=== PATIENT | female | born 1955 | race Caucasian/White ===

== ENCOUNTER 2017-03-31 11:32 | Emergency (ER) | payer MEDICAID ==
[2017-03-31 11:43] VITALS: RESP 18; O2SAT 100
[2017-03-31] MEDS ORDERED: Sodium Chloride 0.9% 1,000 ML IV ONE (11:59)
--- NOTE | 2017-03-31 13:34 | C.PDOC ---
History Of Present Illness 61-year-old female, presents to the emergency department with complaints of lower abdominal pain that is associated with urinary frequency and dysuria. Pain radiates to lower back. Last normal bowel movement was yesterday, Patient denies nausea/vomiting, fevers, chills, hematuria, shortness of breath or chest pain. 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 Limitations: no limitations, language barrier Past Medical History Reviewed: Historical Data, Nursing Documentation, Vital Signs Vital Signs: Last Vital Signs Temp 97.9 F 03/31/17 14:36 Pulse 80 03/31/17 14:36 Resp 18 03/31/17 14:36 BP 112/77 03/31/17 14:36 Pulse Ox 100 03/31/17 14:36 - Medical History PMH: Arthritis, HTN Family History: States: No Known Family Hx - Social History Hx Tobacco Use: No Hx Alcohol Use: No Hx Substance Use: No - Immunization History Hx Tetanus Toxoid Vaccination: No Hx Influenza Vaccination: No Hx Pneumococcal Vaccination: No Review Of Systems Except As Marked, All Systems Reviewed And Found Negative. Constitutional: Negative for: Fever, Chills Cardiovascular: Negative for: Chest Pain, Palpitations Respiratory: Negative for: Shortness of Breath Gastrointestinal: Positive for: Abdominal Pain. Negative for: Nausea, Vomiting , Diarrhea Genitourinary: Positive for: Dysuria, Frequency. Negative for: Hematuria Musculoskeletal: Positive for: Back Pain Physical Exam - Physical Exam Appears: Non-toxic, No Acute Distress Skin: Warm, Dry, No Rash Head: Atraumatic, Normacephalic Eye(s): bilateral: Normal Inspection, EOMI Nose: Normal Oral Mucosa: Moist Lips: Normal Appearing Neck: Normal ROM Cardiovascular: Rhythm Regular, No Murmur Respiratory: Normal Breath Sounds, No Accessory Muscle Use Gastrointestinal/Abdominal: Soft, Tenderness (lower), No Guarding, No Rebound Extremity: Normal ROM Neurological/Psych: Oriented x3, Normal Speech ED Course And Treatment - Laboratory Results Result Diagrams: 03/31/17 13:30 03/31/17 13:30 O2 Sat by Pulse Oximetry: 100 (on RA) Pulse Ox Interpretation: Normal Progress Note: Blood work ordered and reviewed. Patient treated with IVFs and Toradol. UA ordered. On re-evaluation, pt notes pain improved. No abdominal tenderness. toelrating PO. no fever. Discussed signs of concern and instructed to return to ER if symtpoms persist or worsen. Metalworking Specialist used to ensure understanding. Disposition - Disposition Disposition: HOME/ ROUTINE Disposition Time: 14:08 Condition: STABLE Additional Instructions: Vaya a parikh mdico o la clnica en 2-5 waters sin falta, para mas evaluacin. Volver a la [place] de emergencia en cualquier momento si los sntomas persisten o empeoran. Prescriptions: Nitrofurantoin Macrocrystals [Macrobid] 1 cap PO BID #14 cap Instructions: Urinary Tract Infection in Women (ED) Print Language: CYMRAES - Clinical Impression Clinical Impression: UTI (urinary tract infection) - PA / PROJECT MGR / Resident Statement MD/DO has reviewed & agrees with the documentation as recorded. - Scribe Statement The provider has reviewed the documentation as recorded by the Scribe (Ruslan Trejo) All medical record entries made by the Scribe were at my direction and personally dictated by me. I have reviewed the chart and agree that the record accurately reflects my personal performance of the history, physical exam, medical decision making, and the department course for this patient. I have also personally directed, reviewed, and agree with the discharge instructions and disposition.
[2017-03-31 13:45] LABS: BASO % 0.7 % (0.0-2.0); EOS # 0.3 K/uL (0.0-0.7); EOS % 4.8 % (0.0-4.0); HEMOGLOBIN 13.3 g/dL (11.0-16.0); MEAN CELL VOLUME 85.7 fL (81.0-99.0); MEAN CORPUSCULAR HEMOGLOBIN 28.4 pg (27.0-31.0); MEAN CORPUSCULAR HGB CONC 33.1 g/dL (33.0-37.0); MEAN PLATELET VOLUME 7.8 fL (7.2-11.7); MONO # 0.7 K/uL (0.0-0.8); MONO % 9.7 % (0.0-10.0); NEUT # 2.9 K/uL (1.8-7.0); NEUT % 41.8 % (50.0-75.0); RBC 4.68 Mil/uL (3.80-5.20); RED CELL DISTRIBUTION WIDTH 13.1 % (11.5-14.5)
[2017-03-31 13:47] LABS: ALBUMIN 3.6 g/dL (3.5-5.0)
[2017-03-31 13:49] LABS: SQUAMOUS EPITHIAL 6 /hpf (0-5); URINE BACTERIA RARE (<OCC); URINE BILIRUBIN NEGATIVE (NEGATIVE); URINE BLOOD 2+ (NEGATIVE); URINE CLARITY Clear (Clear); URINE COLOR Yellow (YELLOW); URINE GLUCOSE (UA) NORMAL (Normal); URINE LEUKOCYTE ESTERASE 1+ Leu/uL (Negative); URINE NITRATE NEGATIVE (NEGATIVE); URINE PROTEIN NEGATIVE (NEGATIVE); URINE UROBILINOGEN NORMAL mg/dL (0.2-1.0)
[2017-03-31 13:50] LABS: ALB/GLOB RATIO 1.1 (1.0-2.1); AST/SGOT 23 U/L (14-36); GFR AFRICAN-AMERICAN > 60; GFR NON-AFRICAN AMERICAN > 60
[2017-03-31 13:51] LABS: ALT/SGPT 32 U/L (9-52); BLOOD UREA NITROGEN 14 mg/dL (7-17); CALCIUM 8.6 mg/dl (8.6-10.4); LIPASE 61 U/L (23-300)
[2017-03-31 14:37] VITALS: BP 112/77; PULSE 80; TEMP 97.9
== END 2017-03-31 14:37 | disposition home or self-care (01) ==
LOC: C.ER 11:32
DX: N39.0 Urinary tract infection, site not specified (principal)
CPT/HCPCS: 80053; 81001; 83690; 85025; 87086; 96361; 96374; 99284; J1885; J7040

== ENCOUNTER 2018-02-28 14:13 | Emergency (ER) | payer MEDICAID ==
[2018-02-28 14:27] VITALS: BP 110/76; PULSE 82; RESP 17; TEMP 98.6; O2SAT 99
[2018-02-28] MEDS ORDERED: Amoxicillin-Clav 875-125 mg Tab PO STA (14:50)
[2018-02-28] MEDS ORDERED: Tobramycin/Dexamethasone OPHT OINT OS STA (14:50)
--- NOTE | 2018-02-28 14:52 | C.PDOC ---
History Of Present Illness 62 yo female come in for evaluation of Left eye redness, painful swelling over lower lid associated with greenish discharges gradually developed for past 3-4 days. Otherwise, pt denies fever, chills, recent illness, visual changes, blurry vision, FB sensation , double vision, denies contact use, denies known trauma or injury, denies nay other active complaints. Ambulate to ED for evaluation, not in any apparent distress. Time Seen by Provider: 02/28/18 14:25 Chief Complaint (Nursing): Eye Problem History Per: Patient Past Medical History Reviewed: Historical Data, Nursing Documentation, Vital Signs Vital Signs: Last Vital Signs Temp 98.6 F 02/28/18 14:25 Pulse 82 02/28/18 14:25 Resp 17 02/28/18 14:25 BP 110/76 02/28/18 14:25 Pulse Ox 99 02/28/18 14:57 - Medical History PMH: Arthritis, HTN Family History: States: Unknown Family Hx - Social History Hx Tobacco Use: No Hx Alcohol Use: No Hx Substance Use: No - Immunization History Hx Tetanus Toxoid Vaccination: No Hx Influenza Vaccination: No Hx Pneumococcal Vaccination: No Review Of Systems Except As Marked, All Systems Reviewed And Found Negative. Constitutional: Negative for: Fever, Chills Eyes: Positive for: Eyelid Inflammation, Redness. Negative for: Pain, Vision Change ENT: Negative for: Ear Discharge, Nose Discharge, Mouth Swelling, Throat Pain, Throat Swelling Cardiovascular: Negative for: Chest Pain, Palpitations Respiratory: Negative for: Cough, Shortness of Breath, SOB with Excertion, Pleuritic Pain, Sputum, Wheezing Gastrointestinal: Negative for: Nausea, Vomiting, Abdominal Pain, Diarrhea Musculoskeletal: Negative for: Neck Pain, Back Pain Skin: Negative for: Rash Neurological: Negative for: Altered Mental Status, Headache, Dizziness Physical Exam - Physical Exam Appears: Well, Non-toxic, No Acute Distress Skin: Normal Color, Warm, Dry, No Rash Head: Normacephalic Eye(s): bilateral: PERRL, EOMI (no pain or limitation on extraocular movement), left: Other (hordeolum to lower lid with mild infraorbital edema. Mild conjunctival injuection, scant greenish discharge. No periorbital erythema ) Ear(s): Bilateral: Normal Nose: No Flaring, No Discharge Oral Mucosa: Moist, No Drooling Tongue: Normal Appearing Lips: Normal Appearing Throat: No Erythema, No Drooling Neck: Trachea Midline, Supple Respiratory: No Decreased Breath Sounds, No Accessory Muscle Use, No Stridor, No Wheezing Extremity: Normal ROM, No Deformity, No Swelling Neurological/Psych: Oriented x3, Normal Speech ED Course And Treatment O2 Sat by Pulse Oximetry: 99 Pulse Ox Interpretation: Normal Progress Note: On re-evaluation, pt is afebrile, hemodynamicaly stable. Non- toxic. Ambulatory in Ed with stable gait. PulsEOx 99% RA. Left eye: mild tender pustula over the edge left lower lid associated with conjunctival injection, scant purulent. Mild infraorbital edema, no periorbital edema or erythema. No pain or limitation on extraocular movement. VA ( after opht oitm applied): R 20/25, L20/70, B/L 20/25 w/o correction. ENT: no acute findings. neck: Supple, (-) meningeal sign. Lungs: CTA B/L, BS equal B/L. Neurologicaly intact. Pt advised. ref. to f/u with Opht in 2-3 days for re-eavluation. return to ED if any worsening or new changes. Disposition Counseled Patient/Family Regarding: Diagnosis, Need For Followup, Rx Given - Disposition Referrals: Indra Gay [Staff Provider] - Disposition: HOME/ ROUTINE Disposition Time: 14:54 Condition: STABLE Additional Instructions: Warm compresses to Left eye Take medication a prescribed Followup with Ophthalmology in 2 days for re-evaluation. Return to ED if any worsening or new changes. Prescriptions: Amoxicillin/Clavulanate [Augmentin 875 MG-125 MG] 1 tab PO BID #14 tab Tobramycin/Dexamethasone [TobraDex 0.3%-0.1% Opht Oint] 1 appl OD BID #1 tube Instructions: Yung (Hordeolum) Forms: Adisn (Sami) Print Language: SYRIAN - Clinical Impression Clinical Impression: Hordeolum
[2018-02-28] MEDS ORDERED: Amoxicillin-Clav 875-125 mg Tab PO ONE (14:55)
[2018-02-28] MEDS ORDERED: Tobramycin 0.3% OPH OINT ONE (14:55)
== END 2018-02-28 15:14 | disposition home or self-care (01) ==
LOC: C.ER 14:13
DX: H00.015 Hordeolum externum left lower eyelid (principal); I10 Essential (primary) hypertension